=== PATIENT | male | born 1980 | race Caucasian/White ===

== ENCOUNTER 2020-07-28 14:14 | Observation (INO) | payer OTHER, SELFPAY ==
[2020-07-28] MEDS ORDERED: Fentanyl 100 MCG/2 ML VIAL ONE (16:02)
[2020-07-28] MEDS ORDERED: Ibuprofen 800 MG TAB ONE (16:48)
[2020-07-28] MEDS ORDERED: Acetaminophen 500 MG TAB ONE (16:48)
[2020-07-28] MEDS ORDERED: traMADol HCl 50 MG TAB ONE (16:48)
[2020-07-28] MEDS ORDERED: Dextrose 5% in Water 1,000 ML IV PRN (17:39)
[2020-07-28] MEDS ORDERED: Ondansetron ODT 4 MG TAB PO PRN (17:39)
[2020-07-28] MEDS ORDERED: Dextrose 50% Abboject 50 ML SYRINGE SLOW IVP PRN (17:39)
[2020-07-28] MEDS ORDERED: traMADol HCl 50 MG TAB PO PRN (17:42)
[2020-07-28] MEDS ORDERED: Cyclobenzaprine 10 MG TAB PO PRN (17:43)
[2020-07-28] MEDS ORDERED: Cyclobenzaprine 10 MG TAB ONE (17:55)
[2020-07-28] MEDS ORDERED: Gabapentin 300 MG CAP PO SCH (21:00)
[2020-07-28 21:03] VITALS: BMI 27.0
[2020-07-28] MEDS: Famotidine 20 MG TAB PO SCH (21:26)
[2020-07-29] MEDS: Ibuprofen 200 MG TAB PO SCH ×4 (00:44→17:31)
[2020-07-29] MEDS: Acetaminophen 325 MG TAB PO SCH ×2 (00:44→05:05)
[2020-07-29] MEDS: traMADol HCl 50 MG TAB PO SCH ×5 (00:45→17:30)
[2020-07-29 01:16] LABS: SARS-CoV-2 PCR by NAA Not Detected (NotDetected)
[2020-07-29 05:44] LABS: #Eosinphils 0.2 thou/uL (0.0-0.7); #Lymphocytes 1.1 thou/uL (1.20-3.40); #Monocytes 0.7 thou/uL (0.11-0.59); #Neutrophils 8.7 thou/uL (1.40-6.50); %Basophils 0.3 % (0.0-1.0); %Eosinophils 1.5 % (0.0-10.0); %Lymphocytes 9.9 % (21.0-51.0); %Monocytes 6.6 % (0.0-10.0); %Neutrophils 81.7 % (42.0-75.0); Hemoglobin 14.6 g/dL (14.0-18.0); Mean Corpuscular HGB CONC 32.4 g/dL (32.0-36.0); Mean Corpuscular Volume 89.6 fL (78.0-98.0); Mean Platelet Volume 6.7 fL (7.4-10.4); Platelet Count 271 thou/uL (130-400); RBC Distribution Width 11.9 % (11.5-14.5); Red Blood Cell (RBC) Count 5.03 mill/uL (4.70-6.10); White Blood Cell (WBC) Count 10.6 thou/uL (4.8-10.8)
[2020-07-29 05:55] LABS: Anion Gap 14 mmol/L (10-20); BUN (Urea Nitrogen) 18 mg/dL (8.9-20.6); Calc. Creatinine Clearance 106 mL/min (70-130); Calcium 8.6 mg/dL (7.8-10.44); Carbon Dioxide 21 mmol/L (22-29); Chloride 103 mmol/L (98-107); Glucose 75 mg/dL (70-105); Potassium 4.2 mmol/L (3.5-5.1); Sodium 134 mmol/L (136-145)
[2020-07-29] MEDS ORDERED: Enoxaparin Sodium 40 MG/0.4 ML SYRINGE SC SCH (09:00)
[2020-07-29] MEDS ORDERED: Pregabalin 75 MG CAP PO SCH (09:00)
[2020-07-29] MEDS: Acetaminophen 500 MG TAB PO SCH ×2 (09:35→14:09)
[2020-07-29] MEDS: Famotidine 20 MG TAB PO SCH (09:35)
[2020-07-29 21:17] VITALS: BP 109/76; TEMP 98
== END 2020-07-29 19:57 | disposition home or self-care (01) ==
LOC: ERS 14:14 → SURG A 17:43
PROVIDERS: ADMIT Specialist; ATTEND Specialist
DX: S32.011A Stable burst fracture of first lumbar vertebra, initial encounter for closed fracture (principal); G89.11 Acute pain due to trauma; M54.5 Low back pain; F17.210 Nicotine dependence, cigarettes, uncomplicated; E87.1 Hypo-osmolality and hyponatremia; Z20.822 Contact with and (suspected) exposure to COVID-19; V48.5XXA Car driver injured in noncollision transport accident in traffic accident, initial encounter
CPT/HCPCS: 36415; 51701; 80048; 85025; 87635; 96374; G0378; G0390; J3010; U0003; U0005